=== PATIENT | female | born 1970 | race Caucasian/White ===

== ENCOUNTER → 2019-06-02 | Outpatient (CLI) | payer OTHER ==
[~2019-06-02] MED LIST: BUPR100T6 PO; DULO60CA7 PO; GABA600T7 PO; LISI40TA PO; LUBI24CA7 PO; MORP-52 PO; POLY17PO5 PO
== END | disposition home or self-care (01) ==
LOC: CFH 06:40
PROVIDERS: ATTEND Nurse Practitioner Family
DX: Z12.31 Encounter for screening mammogram for malignant neoplasm of breast (principal); Q23.1 Congenital insufficiency of aortic valve; I10 Essential (primary) hypertension; Z86.73 Personal history of transient ischemic attack (TIA), and cerebral infarction without residual deficits
CPT/HCPCS: 93306; 77067